=== PATIENT | male | born 1965 | race Caucasian/White ===

== ENCOUNTER 2022-02-15 09:41 | Emergency (ER) | payer SELFPAY ==
[~2022-02-15] VITALS: Ht 182.9 cm; Wt 113.0 kg
[~2022-02-15 09:41] MED LIST: HYDR-4383 PO; LACT1CAP26 PO; LOSA100T57 PO
[2022-02-15] MEDS ORDERED: erythromycin ophthalmic ointment 1gm tube RIGHTEYE ONE (10:15)
[2022-02-15] MEDS ORDERED: proparacaine 0.5% ophthalmic drops 15ml RIGHTEYE ONE (10:15)
[2022-02-15] MEDS ORDERED: ERYT1OIN6 RIGHTEYE (11:06)
[2022-02-15] MEDS ORDERED: HYDR-3972 PO (11:06)
[2022-02-15 11:38] VITALS: BP 148/102
== END 2022-02-15 11:41 | disposition home or self-care (01) ==
LOC: ER 09:41
DX: S05.01XA Injury of conjunctiva and corneal abrasion without foreign body, right eye, initial encounter (principal); X58.XXXA Exposure to other specified factors, initial encounter; Y93.89 Activity, other specified; Y92.89 Other specified places as the place of occurrence of the external cause; Y99.8 Other external cause status
CPT/HCPCS: 99283